=== PATIENT | male | born 1965 | race Caucasian/White ===

== ENCOUNTER 2017-09-19 12:55 | Emergency (ER) | payer BC, SELFPAY ==
[2017-09-19 13:03] VITALS: BP 142/80; PULSE 75; RESP 18; TEMP 36.8; O2SAT 98; BMI 30.1
--- NOTE | 2017-09-19 14:19 | HMH.EDUPEXT ---
ED Disposition Clinical Impression: Laceration of finger of left hand Disposition: Home, Self-Care Condition on Discharge: Fair Instructions: DI for Laceration Repair Additional Instructions: 1- finger splint. 2- rest. 3- elevate. 4- keep the wound drry and clean. 5- star bactrim and keflex. 6- see Dr Godoy on 09/23 in [place]. 7- to return for any redness or drainage. - Critical Care Critical Care Time: No Attestation: On 09/19/17, the high probability of a clinically significant, sudden or life threatening deterioration of the following system(s) required my full and direct attention, intervention and personal management. The time I documented below is in addition to time spent performing reported procedures but includes the following listed in this critical care notation. Medical Decision Making Vital Signs: 09/19/17 13:03 Temperature 98.2 F Temperature Source Oral Pulse Rate [Right Brachial] 75 Respiratory Rate 18 Blood Pressure [Right Arm] 142/80 Blood Pressure Mean [Right Arm] 100 Blood Pressure Source [Right Arm] Automatic Cuff Blood Pressure Position [Right Arm] Sitting 02 Sat by Pulse Oximetry 98 Oxygen Delivery Method Room Air - Cory Inquiry Pt receiving controlled substance: No Cory was queried for this patient: No Medical Decision Making Narrative: Tanisha with the patient the need for finger splinting no activity, antibiotic use, and follow-up with a hand clinic at [facility]. Verbalized understanding. his son is on the bedside. I re examined him after closure motor 5/5 , cap refill is 1 sec. I spoke with Dr Godoy from who will see him on Saturday 09/23 for follow up. Upper Extremity HPI - General Chief Complaint: Wound/Laceration Stated Complaint: ao [id number] @1230 lac to left finger Mode of Arrival: Ambulatory Limitations: No Limitations Description of Symptoms (Recalled from ER Triage Doc. by RN): sliced middle finger of hand - History of Present Illness HPI narrative: 52 years old white male who was working with a table saw when he lifted the blade widest running and its cut the dorsal of left middle and index finger. It involved with the skin and subcutaneous tissue there was no loss of motor deficits. MD complaint: injury to: left, finger Onset (ago): hour(s) Other Extremity Injury: Left: fingers (Less than an hour prior to arrival) Handedness: left Place: home Severity: mild Relieving factors: rest Exacerbating factors: movement of extremity Associated symptoms: denies other symptoms [facility] History I have reviewed the patient's past medical history: Yes - Social History Educational Level: Completed High School Smoking Status: Unknown if ever smoked Alcohol Intake: never - Psychiatric History Expresses thoughts of harming self/others: None Suicide Plan Description: No Plan ROS Obtained: Yes All systems reviewed & no additional complaints Physical Exam - General General appearance: alert, in no apparent distress - Head Head exam: atraumatic, normocephalic, normal inspection - Eye Eye exam: Present: normal appearance, PERRL, EOMI - ENT ENT exam: Present: normal exam, normal oropharynx, mucous membranes moist, TM's normal bilaterally, normal external ear exam - Neck Neck exam: Present: normal inspection, full ROM, trachea midline. Absent: meningismus, lymphadenopathy - Chest Chest inspection: Present: normal inspection, symmetric chest wall rise. Absent: tenderness - Respiratory Respiratory exam: Present: normal lung sounds bilaterally. Absent: respiratory distress - Cardiovascular Cardiovascular exam: Present: regular rate, normal rhythm. Absent: JVD - Abdominal Exam Abdominal exam: Present: soft, normal bowel sounds. Absent: distention, tenderness, guarding - Extremities Exam Extremities exam: Present: full ROM, normal capillary refill, other (3 cm skin and subcutaneous tissue laceration of the dorsal aspect of
--- NOTE | 2017-09-19 14:23 | ED_ITS ---
ED Disposition Clinical Impression: Laceration of finger of left hand Disposition: Home, Self-Care Condition on Discharge: Fair Instructions: DI for Laceration Repair Additional Instructions: 1- finger splint. 2- rest. 3- elevate. 4- keep the wound drry and clean. 5- star bactrim and keflex. 6- see Dr Godoy on 09/23 in [place]. 7- to return for any redness or drainage. - Critical Care Critical Care Time: No Attestation: On 09/19/17, the high probability of a clinically significant, sudden or life threatening deterioration of the following system(s) required my full and direct attention, intervention and personal management. The time I documented below is in addition to time spent performing reported procedures but includes the following listed in this critical care notation. Medical Decision Making Vital Signs: 09/19/17 13:03 Temperature 98.2 F Temperature Source Oral Pulse Rate [Right Brachial] 75 Respiratory Rate 18 Blood Pressure [Right Arm] 142/80 Blood Pressure Mean [Right Arm] 100 Blood Pressure Source [Right Arm] Automatic Cuff Blood Pressure Position [Right Arm] Sitting 02 Sat by Pulse Oximetry 98 Oxygen Delivery Method Room Air - Cory Inquiry Pt receiving controlled substance: No Cory was queried for this patient: No Medical Decision Making Narrative: Tanisha with the patient the need for finger splinting no activity, antibiotic use , and follow-up with a hand clinic at [facility]. Verbalized understanding. his son is on the bedside. I re examined him after closure motor 5/5 , cap refill is 1 sec. I spoke with Dr Godoy from who will see him on Saturday 09/23 for follow up. Upper Extremity HPI - General Chief Complaint: Wound/Laceration Stated Complaint: ao [id number] @1230 lac to left finger Mode of Arrival: Ambulatory Limitations: No Limitations Description of Symptoms (Recalled from ER Triage Doc. by RN): sliced middle finger of hand - History of Present Illness HPI narrative: 52 years old white male who was working with a table saw when he lifted the blade widest running and its cut the dorsal of left middle and index finger. It involved with the skin and subcutaneous tissue there was no loss of motor deficits. MD complaint: injury to: left, finger Onset (ago): hour(s) Other Extremity Injury: Left: fingers (Less than an hour prior to arrival) Handedness: left Place: home Severity: mild Relieving factors: rest Exacerbating factors: movement of extremity Associated symptoms: denies other symptoms [facility] History I have reviewed the patient's past medical history: Yes - Social History Educational Level: Completed High School Smoking Status: Unknown if ever smoked Alcohol Intake: never - Psychiatric History Expresses thoughts of harming self/others: None Suicide Plan Description: No Plan ROS Obtained: Yes All systems reviewed & no additional complaints Physical Exam - General General appearance: alert, in no apparent distress - Head Head exam: atraumatic, normocephalic, normal inspection - Eye Eye exam: Present: normal appearance, PERRL, EOMI - ENT ENT exam: Present: normal exam, normal oropharynx, mucous membranes moist, TM's normal bilaterally, normal external ear exam - Neck Neck exam: Present: normal inspection, full ROM, trachea midline. Absent: meningismus,
--- NOTE | 2017-09-19 14:23 | PC.NURSE ---
call placed to [facility] for consult. dr gaitan receiving call.
[2017-09-19 14:57] VITALS: BP 146/80; PULSE 82; RESP 18; TEMP 36.8; O2SAT 99
== END 2017-09-19 14:57 | disposition home or self-care (01) ==
PROVIDERS: Emergency Provider Emergency Medicine
DX: S61.213A Laceration without foreign body of left middle finger without damage to nail, initial encounter (principal); S61.211A Laceration without foreign body of left index finger without damage to nail, initial encounter; W31.2XXA Contact with powered woodworking and forming machines, initial encounter; Y92.018 Other place in single-family (private) house as the place of occurrence of the external cause
CPT/HCPCS: 12002; 99281; 99282

== ENCOUNTER → 2017-12-05 09:02 | Day surgery (SDC) | payer BC, SELFPAY ==
--- NOTE | 2017-12-05 | XR_ITS ---
XR tibia fibula LT 2V Ordering Physician: Jamison Bran MD Patient Age: 52 years: Male HISTORY: ITS. While using Weede[employer] a metallic foreign body lodged in soft tissues of leg: COMPARISON :Yesterday's two-view lower leg FINDINGS . These AP and lateral views show that the previously noted linear nail-like metallic foreign body anterior to the fibula now has been removed. The proximal fibula and tibia appear intact on these views. No residual foreign body material evident on these images. IMPRESSION: The metallic foreign body is been removed as documented on these images
--- NOTE | 2017-12-05 09:34 | HMH.ANESCL ---
[facility] Anesthesia Checklist - Patient Identification Patient Identification: Arm Band, Verbal (Name & ) - Structural Data Admitted From: Home Consent for Planned Operative Procedure(s) Verified: Yes Verified Documents: Surgical Consent, History and Physical - NPO Status Verified Time NPO: 05:30 (coffee) - Additional verifications Patient : No (NA) Anesthesia Reactions: No - Airway Assessment C-Spine Mobility Assessed: Yes TMJ Mobility Assessed: Yes Dentition: Good Dentition - Neurological Assessment Level of Consciousness: Awake Hx Seizures: No Numbness or tingling in extremities: No - Anesthesia Plan Anesthesia Risk discussed: Yes Anesthesia Plan: Verified ASA Class: II Anesthesia Type: MAC [facility] Anesthesia HX I have reviewed the patient's past medical history: Yes Medical History: Reports:: Hypertension, Valvular Heart Disease (Hx MVR) Denies:: Cancer, Diabetes Mellitus Type 1, Diabetes Mellitus Type 2, MRSA Other Medical History: Reports: Other (Positive for vaping (tobacco)) Laterality Cases: Right: Arthroscopy Knee Other Surgeries: Yes: Hernia Repair, Mitral Valve Replacement, Other (Testicular torsion sx) Amputation: No Fractures: No
--- NOTE | 2017-12-05 09:37 | P.PN_ITS ---
[facility] Anesthesia Checklist - Patient Identification Patient Identification: Arm Band, Verbal (Name & ) - Structural Data Admitted From: Home Consent for Planned Operative Procedure(s) Verified: Yes Verified Documents: Surgical Consent, History and Physical - NPO Status Verified Time NPO: 05:30 (coffee) - Additional verifications Patient : No (NA) Anesthesia Reactions: No - Airway Assessment C-Spine Mobility Assessed: Yes TMJ Mobility Assessed: Yes Dentition: Good Dentition - Neurological Assessment Level of Consciousness: Awake Hx Seizures: No Numbness or tingling in extremities: No - Anesthesia Plan Anesthesia Risk discussed: Yes Anesthesia Plan: Verified ASA Class: II Anesthesia Type: MAC [facility] Anesthesia HX I have reviewed the patient's past medical history: Yes Medical History: Reports:: Hypertension, Valvular Heart Disease (Hx MVR) Denies:: Cancer, Diabetes Mellitus Type 1, Diabetes Mellitus Type 2, MRSA Other Medical History: Reports: Other (Positive for vaping (tobacco)) Laterality Cases: Right: Arthroscopy Knee Other Surgeries: Yes: Hernia Repair, Mitral Valve Replacement, Other ( Testicular torsion sx) Amputation: No Fractures: No
[2017-12-05 10:55] VITALS: BP 107/67; PULSE 58; RESP 22; TEMP 36.5; O2SAT 97
[2017-12-05 11:05] VITALS: BP 104/58; PULSE 51; RESP 12; TEMP 36.5; O2SAT 97
[2017-12-05 11:10] VITALS: BP 95/84; PULSE 53; RESP 13; TEMP 36.5; O2SAT 96
[2017-12-05 11:15] VITALS: BP 126/82; PULSE 52; RESP 12; TEMP 36.5; O2SAT 97
[2017-12-05 11:20] VITALS: BP 107/62; PULSE 48; RESP 13; TEMP 36.5; O2SAT 97
--- NOTE | 2017-12-05 11:58 | SUR.OPER ---
#20G IV inserted in left hand by Elmer Barry CRNA just prior to entering OR, pt tolerated well
--- NOTE | 2017-12-05 12:00 | SUR.OPER ---
left lower leg hair clipped in pre op just prior to going into OR, pt tolerated well
--- NOTE | 2017-12-08 15:35 | HMH.OPNOTE ---
Date of procedure: 12/05/17 Pre-op Diagnosis:: Foreign body left leg Post-op Diagnosis:: Foreign body left leg Procedure performed:: Surgical removal of foreign body and debridement not of wound tract left leg Surgeon:: Jamison Bran MD SENIOR PROGRAM PLANNER:: Other Anesthesia: other Estimated blood loss (mL): 5 Operative findings:: Retained foreign body consistent with a segment of wire or nail Operative note:: The patient is an adult male, who while mowing the evening before, struck a metallic fragment which became embedded in the anterior aspect of his left leg. He was seen in the emergency department and we scheduled the patient for surgery on the . After an appropriate informed consent had been established, a history and physical was performed and the patient taken to the operating room and prepped and draped in the usual sterile fashion. The entry wound was identified and a C arm fluoroscopic camera brought into the operating room which identified the foreign body proximal to the entry wound. The entry wound was debrided and a surgical incision made from the entry wound up toward a point directly anterior from the pelvic foreign body. We were able to triangulate and extract the foreign body with surgical forceps. Follow-up C arm shot showed no evidence of retained foreign body. We then spread the wound tract with blunt forceps and irrigated with approximately 300 cc of normal saline containing bacitracin. Nonpulsatile irrigation was utilized so as not to damage the tissues. We then used nylon sutures to reapproximate the extended areas the incision left the wound tract itself unsutured. A Bridgette drain segmented been placed prior to wound closure. Dressings were applied and the patient awakened and transported to the recovery room in satisfactory condition. Condition: stable Disposition: PACU (No complications) Specimens:: No complications Complications:: No complications
--- NOTE | 2017-12-08 15:40 | P.OP_ITS ---
Date of procedure: 12/05/17 Pre-op Diagnosis:: Foreign body left leg Post-op Diagnosis:: Foreign body left leg Procedure performed:: Surgical removal of foreign body and debridement not of wound tract left leg Surgeon:: Jamison Bran MD STRAW HAT BRIM CUTTER OPERATOR:: Other Anesthesia: other Estimated blood loss (mL): 5 Operative findings:: Retained foreign body consistent with a segment of wire or nail Operative note:: The patient is an adult male, who while mowing the evening before, struck a metallic fragment which became embedded in the anterior aspect of his left leg. He was seen in the emergency department and we scheduled the patient for surgery on the . After an appropriate informed consent had been established , a history and physical was performed and the patient taken to the operating room and prepped and draped in the usual sterile fashion. The entry wound was identified and a C arm fluoroscopic camera brought into the operating room which identified the foreign body proximal to the entry wound. The entry wound was debrided and a surgical incision made from the entry wound up toward a point directly anterior from the pelvic foreign body. We were able to triangulate and extract the foreign body with surgical forceps. Follow-up C arm shot showed no evidence of retained foreign body. We then spread the wound tract with blunt forceps and irrigated with approximately 300 cc of normal saline containing bacitracin. Nonpulsatile irrigation was utilized so as not to damage the tissues. We then used nylon sutures to reapproximate the extended areas the incision left the wound tract itself unsutured. A Bridgette drain segmented been placed prior to wound closure. Dressings were applied and the patient awakened and transported to the recovery room in satisfactory condition. Condition: stable Disposition: PACU (No complications) Specimens:: No complications Complications:: No complications
== END ==
PROVIDERS: Visit Provider Orthopaedic Surgery
PROC: (CPT 10121; principal; 2017-12-05 09:30)
DX: W45.0XXA Nail entering through skin, initial encounter (principal); W20.8XXA Other cause of strike by thrown, projected or falling object, initial encounter; Y92.017 Garden or yard in single-family (private) house as the place of occurrence of the external cause; W28.XXXA Contact with powered lawn mower, initial encounter; Z72.0 Tobacco use; I10 Essential (primary) hypertension; Z95.2 Presence of prosthetic heart valve; S81.832A Puncture wound without foreign body, left lower leg, initial encounter
CPT/HCPCS: 10121; 73590; 76000; 96374